=== PATIENT | male | born 1965 | race Caucasian/White ===

== ENCOUNTER 2019-10-07 08:45 | Day surgery (SDC) | payer BC ==
[~2019-10-07 08:45] MED LIST: ACETAMINOPHEN 1,000 MG/100 ML BTL IVPB ONE; CEFAZOLIN 2 Gram 2 GM/50 ML BAG IVPB ONE
[2019-10-07] MEDS ORDERED: FENTANYL PF 100MCG/2ML VIAL IV ONE (08:46)
[2019-10-07] MEDS ORDERED: LIDOCAINE 2% MDV (20MG/ML) 20ML VIAL IV ONE (08:46)
[2019-10-07] MEDS ORDERED: KETOROLAC 30 MG/ML VIAL IVP ONE (08:46)
[2019-10-07] MEDS ORDERED: MIDAZOLAM HCL 2MG/2ML VIAL IV ONE (08:46)
[2019-10-07] MEDS ORDERED: ONDANSETRON HCL IV 4 MG/2 ML VIAL IVP ONE (08:46)
[2019-10-07] MEDS ORDERED: DESFLURANE 240 ML BTL INH ONE (08:46)
[2019-10-07] MEDS ORDERED: PROPOFOL 10 MG/ML VIAL IV ONE (08:46)
[2019-10-07] MEDS ORDERED: RINGERS SOLUTION,LACTATED 1,000 ML IV ONE ×2 (09:30→12:23)
[2019-10-07] MEDS ORDERED: BUPIVACAINE 0.5% W/EPI MPF 30 ML VIAL SQ ONE (12:05)
[2019-10-07] MEDS ORDERED: MORPHINE SULFATE (PACU ONLY) 4 MG/ML VIAL IU ONE (12:05)
[2019-10-07] MEDS ORDERED: METHYLPREDNISOLONE 40MG/VIAL IU ONE (12:05)
--- NOTE | 2019-10-08 14:40 | Operative Note ---
DATE OF SURGERY: 10/07/2019 PREOPERATIVE DIAGNOSIS: Internal derangement of the left knee. POSTOPERATIVE DIAGNOSES: 1. Grade 3 chondromalacia of the patella. 2. Fibrocartilage of the notch. 3. Radial flap tear involving the posterior horn of the medial meniscus. 4. Grade 3 chondromalacia of the medial femoral condyle. 5. Flap tear of the articular cartilage of the lateral femoral condyle about the size of a quarter. 6. Limited synovitis. OPERATION: 1. Left knee arthroscopy with partial medial meniscectomy. 2. Left knee arthroscopy with limited synovectomy. 3. Left knee arthroscopy with chondroplasty of the medial and lateral patellofemoral compartments. SURGEON: Kolton Hollingsworth M.D. ANESTHESIA: General. PREPARATION: Chloraprep. INDIVIDUAL CONSIDERATIONS: None. PROCEDURE: The patient was taken to the operating room and placed supine on the operating room table. He had a successful induction with general anesthetic. The right lower extremity was prepped and draped in the usual fashion. The patient had a superior lateral inflow cannula placed. The skin was infiltrated with 0.5% Marcaine with epinephrine prior. A clear effusion was drained. The knee was inflated with normal saline. An inferior medial and an inferior lateral portal were made in a similar fashion. The arthroscope was introduced through the inferior lateral portal up into the pouch. The patellofemoral joint showed grade 3 changes on the patella with fibrocartilage in the notch and irregularities, but nothing really to debride in the notch. The 3 changes on the patella were smoothed with the shaver. The synovitis was in the superior pouch, not much in the gutters. The pouch was debrided out of the synovium with the shaver. Immediately, he had a large radial split tear involving the posterior horn of the medial meniscus. This was basically debrided out with basket forceps and the shaver to a stable rim. The tibial plateau was okay, but there were grade 3 changes on the femoral condyle which was smoothed with the shaver. In the notch, the cruciates were normal laterally. The meniscus was fine, the tibial plateau was fine, but he had a flap lesion of the articular cartilage about the size of a quarter mid flexion, this was debrided out with the shaver taking it down to bone. After irrigation, the portals were closed with rodney and 10 mL of 0.5% Marcaine with epinephrine along with 4 mg of morphine and 40 mg of Depo-Medrol were injected into the knee and a sterile bulky compressive dressing was applied. The patient tolerated the procedure well. The needle and sponge counts were correct. Estimated blood loss was minimal. He was taken back to recovery in good condition. There were no complications. THAD
== END 2019-10-07 13:07 | disposition home or self-care (01) ==
LOC: SUR 08:45
PROVIDERS: ATTEND Orthopaedic Surgery
DX: S83.242A Other tear of medial meniscus, current injury, left knee, initial encounter (principal); M65.9 Synovitis and tenosynovitis, unspecified; M94.20 Chondromalacia, unspecified site; M24.10 Other articular cartilage disorders, unspecified site; E78.00 Pure hypercholesterolemia, unspecified; I25.2 Old myocardial infarction; K21.9 Gastro-esophageal reflux disease without esophagitis; Z95.5 Presence of coronary angioplasty implant and graft
CPT/HCPCS: J1030; J1885; J2270; J2405; J7120